=== PATIENT | female | born 1975 | race African-American/Black ===

== ENCOUNTER 2024-03-06 18:35 | Emergency (ER) | payer OTHER ==
[~2024-03-06] VITALS: Ht 157.5 cm; Wt 41.7 kg
[2024-03-06 19:05] VITALS: PULSE 79; RESP 16; TEMP 98.6; O2SAT 99
[2024-03-06] MEDS: IBUPROFEN 600 MG TAB PO ONE (19:54)
[2024-03-06] MEDS: ONDANSETRON HCL 4 MG ORAL DISINTEGRATING TAB PO ONE (19:54)
[2024-03-06] MEDS ORDERED: ACETAMINOPHEN-1 EAC4 PO (20:18)
[2024-03-06] MEDS ORDERED: IBUPROFEN200 MG PO (20:18)
[2024-03-06] MEDS ORDERED: ONDANSETRON ODT4 MG PO (20:18)
== END 2024-03-06 20:42 | disposition home or self-care (01) ==
LOC: FSED 19:49
DX: S42.202A Unspecified fracture of upper end of left humerus, initial encounter for closed fracture (principal); G89.11 Acute pain due to trauma; I10 Essential (primary) hypertension; W19.XXXA Unspecified fall, initial encounter; Z79.1 Long term (current) use of non-steroidal anti-inflammatories (NSAID)
CPT/HCPCS: 71046; 99284; Q0162